=== PATIENT | male | born 1940 | race Caucasian/White ===

== ENCOUNTER 2016-07-12 19:28 | Inpatient (IN) | payer MEDICARE, OTHER ==
--- NOTE | 2016-07-12 19:50 | EDM.PDOC ---
ED HPI HEAD INJURY - General Chief Complaint: Trauma Stated Complaint: Patient was at the local [employer] and tripped and stumbled fell face first to the floor had no LOC has no complaints of pain Time Seen by Provider: 07/12/16 19:30 Source of Information: Reports: Patient, EMS History Limitations: Reports: No limitations - History of Present Illness INITIAL COMMENTS - FREE TEXT/NARRATIVE: patient states he was walking across the floor and remembers stumbling he tripped over his self and fallen to the floor hitting his face he denies any LOC vision change numbness tingling pain loss of bowel or bladder dose as a nosebleed no other injuries Symptom Onset Date: 07/12/16 Symptom Onset Time: 19:20 Location: Reports: face Place of Occurrence: other Worsens with: none Associated Symptoms: Denies: headache, loss of appetite, nausea/vomiting, seizure, weakness, loss of consciousness, visual changes, dizziness, dazed, confused - Related Data Allergies/ADRs: Allergies Allergy/AdvReac Type Severity Reaction Status Date / Time No Known Allergies Allergy Verified 07/12/16 23:07 Home Meds: Home Meds Digoxin [Digoxin] 125 mcg PO QPM 07/12/16 [History] Ergocalciferol (Vitamin D2) [Vitamin D] 400 units PO DAILY 07/12/16 [History] Fish Oil/Temple-3 Fatty Acids [Fish Oil] 1,000 mg PO DAILY 07/12/16 [History] Flaxseed Oil 1,000 mg PO DAILY 07/12/16 [History] Garlic 1 tab PO DAILY 07/12/16 [History] Warfarin Sodium [Jantoven] 2.5 mg PO SUTUWETHSA 07/12/16 [History] Warfarin Sodium [Jantoven] 5 mg PO MOWE 07/12/16 [History] Carvedilol [Carvedilol] 12.5 mg PO DAILY 07/13/16 [History] Enalapril [Vasotec] 5 mg PO DAILY 07/13/16 [History] Past Medical History Cardiovascular History: Reports: Afib, Other (see below) (Patient states is currently on Coumadin last time it was checked approximately 20 or so days ago does not know level) - Past Surgical History HEENT Surgical History: Reports: Tonsillectomy Musculoskeletal Surgical History: Reports: Other (see below) Other Musculoskeletal Surgeries/Procedures:: broken arm Social & Family History - Tobacco Use Smoking Status *Q: Never Smoker - Recreational Drug Use Recreational Drug Use: No ED ROS GENERAL - Review of Systems Review Of Systems: See Below Constitutional: Denies: weakness, diaphoresis HEENT: Denies: Ear discharge, Eye pain, Nose pain, Vertigo Respiratory: Reports: No Symptoms Cardiovascular: Denies: Chest pain, Blood pressure problem, Dyspnea on exertion , Lightheadedness Endocrine: Reports: no symptoms GI/Abdominal: Reports: No symptoms Musculoskeletal: Reports: no symptoms Skin: Reports: no symptoms Neurological: Reports: No Symptoms. Denies: Confusion, Dizziness, Headache, Numbness, Paresthesia, Syncope, Tingling, Weakness, Change in Speech, Gait Disturbance Psychiatric: Reports: No symptoms Hematologic/Lymphatic: Denies: anemia, easy bleeding, easy bruising ED EXAM, HEAD INJURY - Physical Exam Exam: See Below Exam Limited By: No limitations General Appearance: alert, WD/WN, no apparent distress Head: normocephalic, other (Clotted nasal blood bilateral nares). No: atraumatic Nexus Criteria: No: posterior, midline cervical tenderness, evidence of intoxication, altered level of consciousness, focal neurological deficit, painful distracting injuries Eyes: bilateral eye: EOMI, PERRL Ears: normal external exam, normal canal, hearing grossly normal, normal TMs. No: canal blood (Negative blood behind the tms ) Nose: dried blood. No: no blood, active bleeding Throat/Mouth: Normal lips, Normal teeth, Normal gums, Other ( patient has dried blood in the mouth secondary from nasal bleed). No: Bleeding Neck: non-tender, full range of motion, normal alignment, normal inspection, other (No tender to palpation midline no step-offs no crepitus) Respiratory: no respiratory distress, lungs clear, normal breath sounds, no accessory muscle use, chest non-tender Cardiovascular: normal peripheral pulses, irregularly irregular. No: regular rate, rhythm GI/Abdominal Exam (Abbreviated): normal bowel sounds, soft, non tender, no organomegaly, no distention. No: tender Back Exam: normal inspection, full range of motion Neurologic: relationship counselor II-XII nml as tested, no motor/sensory deficits, alert, normal mood/affect, oriented x 3, other (Patient patient follows all commands answers questions appropriately 2 through 12 are intact with equal gear inspector bilaterally 5 out of 5 strength normal JUANJOSE and finger to nose) - [place] Coma Score Best Eye Response ([place]): (4) open spontaneously Best Verbal Response ([place]): (5) oriented Best Motor Response ([place]): (6) obeys commands Course - Vital Signs Text/Narrative:: Will perform CT of head secondary to injury and on Coumadin labs CBC BMP PT PTT inr EKG showed A. fib Will reevaluate patient after CT Patient was rechecked at 2019 AOX3 neurologically intact no complaints noted to be mildly hypertensive 180/100 Will treat with 10 mg of labetalol IV Per radiology Dr. GUERRERO at [place] no signs of any bleeding or masses on the head CT While patient was in the ER he spiked a fever and started having a hypertensive episode Patient was rechecked blood pressure is now normal heart rate is 90 patient has no complaints A urine and a troponin was checked the troponin was normal Urine showed no signs of infection 30 protein moderate blood trace ketone and RBCs Patient will be admitted to [facility] for A. fib, contusion to the face and on high-risk medication Coumadin hyper tension and pyrexia Last Recorded V/S: Last Vital Signs Temp 37.2 C 07/13/16 09:02 Pulse 99 07/13/16 09:02 Resp 18 07/13/16 09:02 BP 119/73 07/13/16 09:02 Pulse Ox 96 07/13/16 09:02 - Orders/Labs/Meds Orders: Active Orders 24 hr Category Date Time Status EKG 12 Lead [EKG Documentation Completion] [RC] STAT Care 07/12/16 19:44 Active Chest 1V Frontal [CR] Stat Exams 07/12/16 20:57 Taken Head wo Cont [CT] Stat Exams 07/12/16 19:42 Taken CULTURE BLOOD [BC] Stat Lab 07/12/16 20:40 Results CULTURE BLOOD [BC] Stat Lab 07/12/16 20:45 Received Sodium Chloride 0.9% [Saline Flush] Med 07/12/16 20:01 Active 10 ml FLUSH ASDIRECTED PRN Blood Culture x2 Reflex Set [OM.PC] Stat Oth 07/12/16 20:39 Ordered Peripheral IV Insertion Adult [OM.PC] Routine Oth 07/12/16 20:01 Ordered Medication Orders Carvedilol (Coreg) 12.5 mg PO BIDM [facility] Last Admin: 07/13/16 07:33 Dose: 12.5 mg Digoxin (Lanoxin) 125 mcg PO DAILY [facility] Last Admin: 07/13/16 07:33 Dose: 125 mcg Enalapril Maleate (Vasotec) 5 mg PO DAILY [facility] Last Admin: 07/13/16 07:33 Dose: 5 mg Sodium Chloride (Saline Flush) 10 ml FLUSH ASDIRECTED PRN PRN Reason: Keep Vein Open Last Admin: 07/13/16 07:34 Dose: 10 ml Admin: 07/12/16 20:29 Dose: 10 ml Warfarin Sodium (Coumadin) 5 mg PO [email or web address] [facility] Warfarin Sodium (Coumadin) 2.5 mg PO [email or web address] [facility] Labs: Laboratory Tests 07/12/16 07/12/16 07/12/16 Range/Units 20:10 20:10 20:10 WBC 7.0 (4.0-10.0) x10^3/uL RBC 4.34 L (4.5-6.0) x10^6/uL Hgb 14.2 (14.0-18.0) g/dL Hct 41.6 (40.0-52.0) % MCV 95.9 H (78.0-93.0) fL MCH 32.7 H (26.0-32.0) pg MCHC 34.1 (32.0-36.0) g/dL RDW Coeff of Genie 13.4 (10.0-15.0) % Plt Count 170 (130-400) x10^3/uL Neut % (Auto) 75.8 (50.0-80.0) % Lymph % (Auto) 5.9 L (25.0-50.0) % [place] % (Auto) 16.8 H (2.0-11.0) % Eos % (Auto) 1.4 (0.0-4.0) % Baso % (Auto) 0.1 L (0.2-1.2) % PT 31.2 H (10.0-12.8) SEC INR 2.7 (2.0-3.5) Sodium 139 (136-145) mmol/L Potassium 4.0 (3.5-5.1) mmol/L Chloride 103 (98-107) mmol/L Carbon Dioxide 27 (21-32) mmol/L BUN 14 (7-18) mg/dL Creatinine 1.1 (0.70-1.30) mg/dL Est Cr Clr Drug Dosing 66.42 mL/min Estimated GFR (MDRD) > 60 Glucose 183 H (74-106) mg/dL Calcium 8.6 (8.5-10.1) mg/dL Troponin I (<=0.056) ng/mL Urine Color (YELLOW) Urine Appearance (CLEAR) Urine pH (5.0-8.0) Ur Specific [place] Urine Protein (NEGATIVE) mg/dL Urine Glucose (UA) (NEGATIVE) mg/dL Urine Ketones (NEGATIVE) mg/dL Urine Occult Blood (NEGATIVE) Urine Nitrite (NEGATIVE) Urine Bilirubin (NEGATIVE) Urine Urobilinogen (0.2) EU/dL Ur Leukocyte Esterase (NEGATIVE) Urine RBC (NOT SEEN) /HPF Urine WBC (NOT SEEN) /HPF Ur Squamous Epith Cells (NEGATIVE) /HPF Urine Bacteria (NEGATIVE) /HPF Urine Mucus (NEGATIVE) /LPF 07/12/16 07/12/16 Range/Units 20:10 21:00 WBC (4.0-10.0) x10^3/uL RBC (4.5-6.0) x10^6/uL Hgb (14.0-18.0) g/dL Hct (40.0-52.0) % MCV (78.0-93.0) fL MCH (26.0-32.0) pg MCHC (32.0-36.0) g/dL RDW Coeff of Genie (10.0-15.0) % Plt Count (130-400) x10^3/uL Neut % (Auto) (50.0-80.0) % Lymph % (Auto) (25.0-50.0) % [place] % (Auto) (2.0-11.0) % Eos % (Auto) (0.0-4.0) % Baso % (Auto) (0.2-1.2) % PT (10.0-12.8) SEC INR (2.0-3.5) Sodium (136-145) mmol/L Potassium (3.5-5.1) mmol/L Chloride (98-107) mmol/L Carbon Dioxide (21-32) mmol/L BUN (7-18) mg/dL Creatinine (0.70-1.30) mg/dL Est Cr Clr Drug Dosing mL/min Estimated GFR (MDRD) Glucose (74-106) mg/dL Calcium (8.5-10.1) mg/dL Troponin I < 0.017 (<=0.056) ng/mL Urine Color Yellow (YELLOW) Urine Appearance Clear (CLEAR) Urine pH 5.5 (5.0-8.0) Ur Specific [place] 1.020 Urine Protein 30 H (NEGATIVE) mg/dL Urine Glucose (UA) Negative (NEGATIVE) mg/dL Urine Ketones Trace H (NEGATIVE) mg/dL Urine Occult Blood Moderate H (NEGATIVE) Urine Nitrite Negative (NEGATIVE) Urine Bilirubin Small H (NEGATIVE) Urine Urobilinogen 2.0 H (0.2) EU/dL Ur Leukocyte Esterase Negative (NEGATIVE) Urine RBC 20-30 H (NOT SEEN) /HPF Urine WBC 0-5 (NOT SEEN) /HPF Ur Squamous Epith Cells Not seen (NEGATIVE) /HPF Urine Bacteria Few H (NEGATIVE) /HPF Urine Mucus Moderate H (NEGATIVE) /LPF Meds: Medications Generic Name Dose Route Start Last Admin Trade Name Freq PRN Reason Stop Dose Admin Carvedilol 12.5 mg 07/13/16 08:00 07/13/16 07:33 Coreg PO 12.5 mg BIDM [facility] Administration Digoxin 125 mcg 07/13/16 08:00 07/13/16 07:33 Lanoxin PO 125 mcg DAILY NAYELI Administration Enalapril Maleate 5 mg 07/13/16 08:00 07/13/16 07:33 Vasotec PO 5 mg DAILY [facility] Administration Sodium Chloride 10 ml 07/12/16 20:01 07/13/16 07:34 Saline Flush FLUSH 10 ml ASDIRECTED PRN Administration Keep Vein Open Warfarin Sodium 5 mg 07/13/16 20:00 Coumadin PO [email or web address] [facility] Warfarin Sodium 2.5 mg 07/14/16 20:00 Coumadin PO [email or web address] [facility] Discontinued Medications Generic Name Dose Route Start Last Admin Trade Name Freq PRN Reason Stop Dose Admin Acetaminophen 650 mg 07/12/16 22:23 Tylenol PO Q4H PRN Pain (Mild 1-3)/fever Carvedilol 12.5 mg 07/12/16 22:21 07/13/16 05:37 Coreg PO 07/12/16 22:22 Not Given ONETIME STA Carvedilol 6.25 mg 07/12/16 22:21 07/12/16 22:49 Coreg PO 07/12/16 22:22 6.25 mg ONETIME STA Administration Labetalol HCl 10 mg 07/12/16 20:26 07/12/16 20:29 Normodyne IVPUSH 07/12/16 20:27 10 mg NOW ONE Administration Departure - Departure Time of Disposition: 21:30 Disposition: Refer to Observation Condition: good Clinical Impression: Pyrexia of unknown origin, High risk medication use, Epistaxis Afib Qualifiers: Atrial fibrillation type: unspecified Qualified Code(s): I48.91 - Unspecified atrial fibrillation Contusion of face Qualifiers: Encounter type: initial encounter Qualified Code(s): S00.83XA - Contusion of other part of head, initial encounter Hypertension Qualifiers: Hypertension type: essential hypertension Qualified Code(s): I10 - Essential ( primary) hypertension - Problem List & Annotations (1) Contusion of face SNOMED Code(s): 023452462 Code(s): S00.83XA - CONTUSION OF OTHER PART OF HEAD, INITIAL ENCOUNTER Status: Acute Current Visit: Yes Annotation/Comment:: - Denies any head trauma or loss of consciousness. - CT head negative. - He was instructed to notify nursing immediately if he were to develop any headache or other neurologic symptoms. - Will ensure adequate BP control as below. Qualifiers: Encounter type: initial encounter Qualified Code(s): S00.83XA - Contusion of other part of head, initial encounter (2) Afib SNOMED Code(s): 74369429 Code(s): I48.91 - UNSPECIFIED ATRIAL FIBRILLATION Status: Acute Current Visit: Yes Qualifiers: Atrial fibrillation type: unspecified Qualified Code(s): I48.91 - Unspecified atrial fibrillation (3) High risk medication use SNOMED Code(s): 341260050, 140788690 Code(s): Z79.899 - OTHER TRAFFIC LIEUTENANT (CURRENT) DRUG THERAPY Status: Chronic Current Visit: Yes Annotation/Comment:: - INR is therapeutic at 2.7. - No indication to reverse it at this time. - Will monitor for any signs of bleeding. (4) Hypertension SNOMED Code(s): 50382866 Code(s): I10 - ESSENTIAL (PRIMARY) HYPERTENSION Status: Chronic Current Visit: Yes Annotation/Comment:: - BP significantly elevated in the ED but responded well to labetalol. - Recheck here on the floor also elevated but normal when checked manually. - Will give a dose of coreg tonight to cover him. Otherwise, continue benazepril. - Will monitor closely overnight. Qualifiers: Hypertension type: essential hypertension Qualified Code(s): I10 - Essential (primary) hypertension (5) Pyrexia of unknown origin SNOMED Code(s): 3065723 Code(s): R50.9 - FEVER, UNSPECIFIED Status: Acute Current Visit: Yes Annotation/Comment:: - Concern for fever in the ED but never met true fever threshold. - WBC normal, no significant symptoms of infection, and negative CXR and u/a. - Will observe overnight off antibiotics. - If he does develop a fever, will start antibiotics and broaden evaluation for a cause. (6) Epistaxis SNOMED Code(s): 23202154, 819626127 Code(s): R04.0 - EPISTAXIS Status: Resolved Current Visit: Yes Annotation/Comment:: - Presented with epistaxis and this has subsequently resolved. - My Orders Last 24 Hours: My Active Orders 07/12/16 19:42 Head wo Cont [CT] Stat 07/12/16 19:44 EKG 12 Lead [EKG Documentation Completion] [RC] STAT 07/12/16 20:01 Sodium Chloride 0.9% [Saline Flush] 10 ml FLUSH ASDIRECTED PRN Peripheral IV Insertion Adult [OM.PC] Routine 07/12/16 20:39 Blood Culture x2 Reflex Set [OM.PC] Stat 07/12/16 20:40 CULTURE BLOOD [BC] Stat 07/12/16 20:45 CULTURE BLOOD [BC] Stat 07/12/16 20:57 Chest 1V Frontal [CR] Stat - Assessment/Plan Last 24 Hours: My Active Orders 07/12/16 19:42 Head wo Cont [CT] Stat 07/12/16 19:44 EKG 12 Lead [EKG Documentation Completion] [RC] STAT 07/12/16 20:01 Sodium Chloride 0.9% [Saline Flush] 10 ml FLUSH ASDIRECTED PRN Peripheral IV Insertion Adult [OM.PC] Routine 07/12/16 20:39 Blood Culture x2 Reflex Set [OM.PC] Stat 07/12/16 20:40 CULTURE BLOOD [BC] Stat 07/12/16 20:45 CULTURE BLOOD [BC] Stat 07/12/16 20:57 Chest 1V Frontal [CR] Stat
[2016-07-12] MEDS ORDERED: Labetalol 20 MG/4 ML Syringe IVPUSH ONE (20:26)
[2016-07-12] MEDS: Sodium Chloride 0.9% 10 ML Syringe FLUSH PRN (20:29)
[2016-07-12 20:31] LABS: CHLORIDE,CL 103 mmol/L (98-107); SODIUM,NA 139 mmol/L (136-145)
[2016-07-12] MEDS ORDERED: Carvedilol 6.25 MG Tab PO STA (22:21)
[2016-07-12] MEDS ORDERED: Carvedilol 12.5 MG Tab PO STA (22:21)
[2016-07-12] MEDS ORDERED: Acetaminophen 325 MG Tab PO PRN (22:23)
--- NOTE | 2016-07-12 22:44 | PCM.HP ---
[id number]: Patient History Limitations: Reports: No limitations - History of Present Illness Initial Comments - Free Text/Narative: Mr. Vernon is a 76 yo male with PMH of chronic atrial fibrillation, CHF, valvular heart disease, CAD, hypertension, and hyperlipidemia who was brought to the ED by EMS for evaluation following a fall earlier tonight. He states he was walking into [place] when he tripped and fell over the landing. There was a cart just inside the door and he ended up hitting his nose on it and getting a bloody nose. He did not really hit his head. He denies any syncope or loss of consciousness. He has had some mild congestion and dry mouth over the past couple of days but denies any significant cough, fever, or chills. He has not really felt unwell or had any myalgias. He has been taking his medications but differently than prescribed. He had developed an itchy rash on his back. Therefore, he cut all of his pills in half and has been taking them once/day. The rash did improve with this decrease. He has not felt any palpitations or lightheadedness. He otherwise denies any symptoms. Please see ROS below. Right Hip Pain Score (Numeric/FACES): 3 - Related Data Allergies/Adverse Reactions: Allergies Allergy/AdvReac Type Severity Reaction Status Date / Time No Known Allergies Allergy Verified 07/12/16 23:07 Home Medications: Home Meds Carvedilol [Coreg] 12.5 mg PO DAILY 07/12/16 [History] Digoxin [Digoxin] 125 mcg PO DAILY 07/12/16 [History] Ergocalciferol (Vitamin D2) [Vitamin D] 1 tab PO DAILY 07/12/16 [History] Fish Oil/[place]-3 Fatty Acids [Fish Oil] 1 each PO DAILY 07/12/16 [History] Flaxseed Oil 1 cap PO DAILY 07/12/16 [History] Garlic 1 tab PO DAILY 07/12/16 [History] Warfarin Sodium [Jantoven] 2.5 mg PO ASDIRECTED 07/12/16 [History] Warfarin Sodium [Jantoven] 5 mg PO ASDIRECTED 07/12/16 [History] Enalapril [Vasotec] 5 mg PO DAILY 07/13/16 [History] Past Medical History HEENT History: Reports: None Cardiovascular History: Reports: Afib, High cholesterol, Hypertension, Other ( see below) (has history of mild valvular disease; Patient states is currently on Coumadin last time it was checked approximately 20 or so days ago does not know level) Respiratory History: Reports: None Gastrointestinal History: Reports: None Genitourinary History: Reports: None Musculoskeletal History: Reports: None Neurological History: Reports: None Psychiatric History: Reports: None Endocrine/Metabolic History: Reports: None Hematologic History: Reports: None Immunologic History: Reports: None Oncologic (Cancer) History: Reports: None Dermatologic History: Reports: None - Infectious Disease History Infectious Disease History: Reports: None - Past Surgical History HEENT Surgical History: Reports: Tonsillectomy Musculoskeletal Surgical History: Reports: Other (see below) Other Musculoskeletal Surgeries/Procedures:: broken arm Social & Family History - Family History Family Medical History: Unobtainable (patient does not know of his family medical history) - Tobacco Use Smoking Status *Q: Former Smoker Tobacco Use Within Last Twelve Months: No - Caffeine Use Caffeine Use: Reports: Coffee - Alcohol Use Alcohol Use History: Yes Alcohol Use in Last Twelve Months: No - Recreational Drug Use Recreational Drug Use: No - Living Situation & Occupation Living situation: Reports: single, alone Occupation: retired (Had worked in the [employer] for many years; most recently worked at [employer] Never ; no children.) H&P Review of Systems - Review of Systems: Review Of Systems: See Below General: Reports: no symptoms HEENT: Reports: no symptoms Pulmonary: Reports: No Symptoms Cardiovascular: Reports: no symptoms Gastrointestinal: Reports: No symptoms Genitourinary: Reports: no symptoms Musculoskeletal: Reports: no symptoms Skin: Reports: no symptoms Psychiatric: Reports: no symptoms Neurological: Reports: No Symptoms Hematologic/Lymphatic: Reports: no symptoms Exam - Exam Exam: See Below - Vital Signs Vital Signs: Last Vital Signs Temp 37.8 C 07/12/16 21:10 Pulse 93 07/12/16 21:10 Resp 16 07/12/16 21:10 BP 162/92 H 07/12/16 21:10 Pulse Ox 95 07/12/16 21:10 Weight: 99.79 kg - Exam General: alert, oriented, cooperative. No: mild distress, moderate distress, severe distress HEENT: Conjunctiva clear, Mucosa moist & pink, Pupils equal, Pupils reactive, Other (dried blood at the left nare) Neck: supple, trachea midline, full range of motion, other (no midline tenderness to palpation; no pain with ROM). No: lymphadenopathy, thyromegaly Lungs: Clear to auscultation, Normal respiratory effort Cardiovascular: regular rate, normal S1, normal S2, irregular rhythm. No: systolic murmur, diastolic murmur Abdomen: normal bowel sounds, soft. No: organomegaly, tenderness Back Exam: normal inspection, full range of motion Extremities: normal inspection, normal pulses. No: edema Skin: warm, dry, intact. No: rash Neurological: cranial nerves intact, reflexes equal bilateral, normal speech, normal tone. No: focal deficit - Patient Data Result Diagrams: 07/13/16 06:14 07/13/16 06:14 *Q Meaningful Use (ADM) - VTE *Q VTE Criteria *Q: VTE Anticoagulation Contraindications: Med/tx not indicated/need - Stroke *Q Stroke Criteria *Q: - AMI *Q AMI Criteria *Q: - Problem List (1) Fall SNOMED Code(s): 1452090, 330114589 ICD Code: W19.XXXA - UNSPECIFIED FALL, INITIAL ENCOUNTER Status: Acute Current Visit: Yes Problem Details: - Mechanical. - He does not appear to have sustained any significant injuries from this. - His epistaxis has resolved. CT head was negative. - He will not likely require any PT. Qualifiers: Encounter type: initial encounter Qualified Code(s): W19.XXXA - Unspecified fall, initial encounter (2) Contusion of face SNOMED Code(s): 440547624 ICD Code: S00.83XA - CONTUSION OF OTHER PART OF HEAD, INITIAL ENCOUNTER Status: Acute Current Visit: Yes Problem Details: - Denies any head trauma or loss of consciousness. - CT head negative. - He was instructed to notify nursing immediately if he were to develop any headache or other neurologic symptoms. - Will ensure adequate BP control as below. Qualifiers: Encounter type: initial encounter Qualified Code(s): S00.83XA - Contusion of other part of head, initial encounter (3) Epistaxis SNOMED Code(s): 29711722, 755939150 ICD Code: R04.0 - EPISTAXIS Status: Resolved Current Visit: Yes Problem Details: - Presented with epistaxis and this has subsequently resolved. (4) Atrial fibrillation with RVR SNOMED Code(s): 613219803389246 ICD Code: I48.91 - UNSPECIFIED ATRIAL FIBRILLATION Status: Acute Current Visit: Yes Problem Details: - Atrial fibrillation is chronic but he is in RVR tonight. - Likely related to medication noncompliance as he only takes his coreg once/ day. Differential considerations that have been ruled out include electrolyte disturbance, infection (negative WBC, no symptoms of infection, no true fever), and ACS (unremarkable ECG, negative troponin). Consider thyroid disease but this is less likely without a history of the same. - Will check TSH with am labs and repeat CBC and BMP tomorrow. - Will give 6.25 mg of coreg tonight given he is at risk of rebounding once the labetalol fully wears off. - Will then start him on 12.5 mg BID as of tomorrow. - Continue home dose of digoxin at 125 mcg. - Will monitor him for a full 24 hours on that dose to ensure he remains rate controlled. 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 - No indication to reverse it at this time. - Will monitor for any signs of bleeding. (6) Hyperlipidemia SNOMED Code(s): 37702774 ICD Code: E78.5 - HYPERLIPIDEMIA, UNSPECIFIED Status: Chronic Current Visit: Yes Problem Details: - Hold fish oil while hospitalized. Qualifiers: Hyperlipidemia type: unspecified Qualified Code(s): E78.5 - Hyperlipidemia , unspecified (7) CHF (congestive heart failure) SNOMED Code(s): 95666482 ICD Code: I50.9 - HEART FAILURE, UNSPECIFIED Status: Chronic Current Visit: Yes Problem Details: - No evidence of CHF exacerbation. - No indication for lasix therapy. - Continue benazepril and coreg. Qualifiers: Congestive heart failure type: diastolic Congestive heart failure chronicity: chronic Qualified Code(s): I50.32 - Chronic diastolic (congestive ) heart failure (8) Hypertension SNOMED Code(s): 90681557 ICD Code: I10 - ESSENTIAL (PRIMARY) HYPERTENSION Status: Chronic Current Visit: Yes Problem Details: - BP significantly elevated in the ED but responded well to labetalol. - Recheck here on the floor also elevated but normal when checked manually. - Will give a dose of coreg tonight to cover him. Otherwise, continue benazepril. - Will monitor closely overnight. Qualifiers: Hypertension type: essential hypertension Qualified Code(s): I10 - Essential (primary) hypertension (9) Pyrexia of unknown origin SNOMED Code(s): 5030535 ICD Code: R50.9 - FEVER, UNSPECIFIED Status: Acute Current Visit: Yes Problem Details: - Concern for fever in the ED but never met true fever threshold. - WBC normal, no significant symptoms of infection, and negative CXR and u/a. - Will observe overnight off antibiotics. - If he does develop a fever, will start antibiotics and broaden evaluation for a cause. Problem List Initiated/Reviewed/Updated: Yes Orders Last 24hrs: Active Orders 24 hr Category Date Time Status Cardiac Monitoring [RC] CONTINUOUS Care 07/12/16 22:23 Ordered Notify Provider Vital Signs [RC] ASDIRECTED Care 07/12/16 22:23 Ordered Oxygen Therapy [RC] PRN Care 07/12/16 22:23 Ordered Up With Assistance [RC] ASDIRECTED Care 07/12/16 22:23 Ordered VTE/DVT Education [RC] PER UNIT ROUTINE Care 07/12/16 22:23 Ordered Vital Signs [RC] Q4H Care 07/12/16 22:23 Ordered Regular Diet [DIET] Diet 07/12/16 Breakfast Ordered Carvedilol [Coreg] Med 07/13/16 08:00 Ordered 12.5 mg PO BIDM Digoxin [Lanoxin] Med 07/13/16 08:00 Ordered 125 mcg PO DAILY Enalapril [Vasotec] Med 07/13/16 08:00 Ordered 5 mg PO DAILY Warfarin [Coumadin] Med 07/14/16 20:00 Ordered 2.5 mg PO [email or web address]@1999 Warfarin [Coumadin] Med 07/13/16 20:00 Ordered 5 mg PO [email or web address]@1999 Anticoagulation Contraindications VTE [AST] Per Unit Oth 07/12/16 22:23 Ordered Routine Resuscitation Status Routine Resus Stat 07/12/16 22:23 Ordered Medication Orders Carvedilol (Coreg) 12.5 mg PO BIDM NAYELI Digoxin (Lanoxin) 125 mcg PO DAILY NAYELI Enalapril Maleate (Vasotec) 5 mg PO DAILY [facility] Sodium Chloride (Saline Flush) 10 ml FLUSH ASDIRECTED PRN PRN Reason: Keep Vein Open Last Admin: 07/12/16 20:29 Dose: 10 ml Warfarin Sodium (Coumadin) 5 mg PO [email or web address]@1999 [facility] Warfarin Sodium (Coumadin) 2.5 mg PO [email or web address]@1999 [facility] Assessment/Plan Comment:: 76 yo male admitted with atrial fibrillation with RVR following a mechanical fall earlier this evening. He is asymptomatic and otherwise feeling well. Please see details under problems above. Will restart all home meds but increase coreg to BID dosing. No indication for VTE prophylaxis as he is therapeutic on warfarin. He is admitted acute for further evaluation and management of the a-fib with RVR. Anticipate a 48-72 hour admission to get his rate better controlled. He wishes to be DNR/DNI.
[2016-07-13] MEDS: Digoxin 125 MCG Tab PO SCH (07:33)
[2016-07-13] MEDS: Carvedilol 12.5 MG Tab PO SCH ×2 (07:33→17:17)
[2016-07-13] MEDS: Enalapril 5 MG Tab PO SCH (07:33)
[2016-07-13] MEDS: Sodium Chloride 0.9% 10 ML Syringe FLUSH PRN (07:34)
[2016-07-13 07:46] LABS: CHLORIDE,CL 103 mmol/L (98-107); SODIUM,NA 139 mmol/L (136-145)
--- NOTE | 2016-07-13 12:34 | PCM.PN ---
- General Info Date of Service: 07/13/16 Subjective Update: Feels ok this morning except for when he gets up and moves around. Then he starts to have significant right hip pain and has noticed his heart beating faster. He denies any chest pain, shortness of breath, or lightheadedness. He has had no fever or chills. His nosebleed remains resolved. - Review of Systems General: Reports: No Symptoms HEENT: Reports: no symptoms Pulmonary: Reports: no symptoms Cardiovascular: Reports: Palpitations. Denies: Chest Pain, Lightheadedness Gastrointestinal: Reports: No symptoms Genitourinary: Reports: no symptoms Musculoskeletal: Reports: joint pain (right hip) Skin: Reports: no symptoms - Patient Data Vitals - most recent: Last Vital Signs Temp 37.2 C 07/13/16 09:02 Pulse 99 07/13/16 09:02 Resp 18 07/13/16 09:02 BP 119/73 07/13/16 09:02 Pulse Ox 96 07/13/16 09:02 Weight - most recent: 99.79 kg I&O - last 24 hours: Intake & Output 07/12/16 07/13/16 07/13/16 22:59 06:59 14:59 Intake Total 300 Output Total 850 300 Balance -550 -300 Lab Results last 24 hrs: Laboratory Results - last 24 hr 07/13/16 07/13/16 Range/Units 06:14 06:14 WBC 8.3 (4.0-10.0) x10^3/uL RBC 4.04 L (4.5-6.0) x10^6/uL Hgb 13.3 L (14.0-18.0) g/dL Hct 39.3 L (40.0-52.0) % MCV 97.3 H (78.0-93.0) fL MCH 32.9 H (26.0-32.0) pg MCHC 33.8 (32.0-36.0) g/dL RDW Coeff of Genie 13.3 (10.0-15.0) % Plt Count 174 (130-400) x10^3/uL Neut % (Auto) 76.7 (50.0-80.0) % Lymph % (Auto) 7.4 L (25.0-50.0) % Boundary % (Auto) 15.4 H (2.0-11.0) % Eos % (Auto) 0.4 (0.0-4.0) % Baso % (Auto) 0.1 L (0.2-1.2) % Sodium 139 (136-145) mmol/L Potassium 4.0 (3.5-5.1) mmol/L Chloride 103 (98-107) mmol/L Carbon Dioxide 30 (21-32) mmol/L BUN 12 (7-18) mg/dL Creatinine 1.0 (0.70-1.30) mg/dL Est Cr Clr Drug Dosing 73.07 mL/min Estimated GFR (MDRD) > 60 Glucose 129 H (74-106) mg/dL Calcium 8.5 (8.5-10.1) mg/dL TSH, Ultra Sensitive 2.692 (0.358-3.74) uIU/mL Med Orders - Current: Current Medications Carvedilol (Coreg) 12.5 mg PO BIDM [facility] Last Admin: 07/13/16 07:33 Dose: 12.5 mg Digoxin (Lanoxin) 125 mcg PO DAILY [facility] Last Admin: 07/13/16 07:33 Dose: 125 mcg Enalapril Maleate (Vasotec) 5 mg PO DAILY [facility] Last Admin: 07/13/16 07:33 Dose: 5 mg Sodium Chloride (Saline Flush) 10 ml FLUSH ASDIRECTED PRN PRN Reason: Keep Vein Open Last Admin: 07/13/16 07:34 Dose: 10 ml Warfarin Sodium (Coumadin) 5 mg PO [email or web address]@1999 [facility] Warfarin Sodium (Coumadin) 2.5 mg PO [email or web address]@1999 [facility] Discontinued Medications Acetaminophen (Tylenol) 650 mg PO Q4H PRN PRN Reason: Pain (Mild 1-3)/fever Carvedilol (Coreg) 12.5 mg PO ONETIME STA Stop: 07/12/16 22:22 Last Admin: 07/13/16 05:37 Dose: Not Given Carvedilol (Coreg) 6.25 mg PO ONETIME STA Stop: 07/12/16 22:22 Last Admin: 07/12/16 22:49 Dose: 6.25 mg Labetalol HCl (Normodyne) 10 mg IVPUSH NOW ONE Stop: 07/12/16 20:27 Last Admin: 07/12/16 20:29 Dose: 10 mg - Exam General: alert, cooperative, no acute distress HEENT: Pupils equal, Pupils reactive, Mucous membr. moist/pink Neck: supple, trachea midline, no thyromegaly. No: lymphadenopathy Lungs: Clear to auscultation, Normal respiratory effort Cardiovascular: No Murmurs, Irregular Rhythm, Tachycardia Abdomen: bowel sounds present, soft, no tenderness, no distension Extremities: no edema, normal pulses, other (tenderness to palpation over the lateral aspect of the right hip. No pain with passive internal and external rotation. No bruising or erythema.) Skin: warm, dry, intact - Problem List & Annotations (1) Fall SNOMED Code(s): 1671696, 172738503 Code(s): W19.XXXA - UNSPECIFIED FALL, INITIAL ENCOUNTER Status: Acute Current Visit: Yes Qualifiers: Encounter type: initial encounter Qualified Code(s): W19.XXXA - Unspecified fall, initial encounter Annotation/Comment:: - Mechanical. - His epistaxis has resolved. CT head was negative. - PT consult today to assist with mobilization. (2) Contusion of face SNOMED Code(s): 686246784 Code(s): S00.83XA - CONTUSION OF OTHER PART OF HEAD, INITIAL ENCOUNTER Status: Acute Current Visit: Yes Qualifiers: Encounter type: initial encounter Qualified Code(s): S00.83XA - Contusion of other part of head, initial encounter Annotation/Comment:: - Denies any head trauma or loss of consciousness. - CT head negative. - He was instructed to notify nursing immediately if he were to develop any headache or other neurologic symptoms. - Will ensure adequate BP control as below. (3) Epistaxis SNOMED Code(s): 51050792, 421418953 Code(s): R04.0 - EPISTAXIS Status: Resolved Current Visit: Yes Annotation/Comment:: - Presented with epistaxis and this has subsequently resolved. (4) Atrial fibrillation with RVR SNOMED Code(s): 091044967725995 Code(s): I48.91 - UNSPECIFIED ATRIAL FIBRILLATION Status: Acute Current Visit: Yes Annotation/Comment:: - Atrial fibrillation is chronic. Rate is improved today except with activity. - Likely related to medication noncompliance as he only takes his coreg once/ day. Differential considerations that have been ruled out as previously documented. TSH normal. - Will see how he does on 12.5 mg coreg BID today. If he is still having tachycardia with activity, will increase back to 25 mg BID. - Continue home dose of digoxin at 125 mcg. - Remain on telemetry. 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 - Continue home warfarin dosing. Will recheck INR tomorrow. - No indication to reverse it at this time. - Will monitor for any signs of bleeding. (6) Hyperlipidemia SNOMED Code(s): 63217752 Code(s): E78.5 - HYPERLIPIDEMIA, UNSPECIFIED Status: Chronic Current Visit: Yes Qualifiers: Hyperlipidemia type: unspecified Qualified Code(s): E78.5 - Hyperlipidemia , unspecified Annotation/Comment:: - Hold fish oil while hospitalized. (7) CHF (congestive heart failure) SNOMED Code(s): 54521498 Code(s): I50.9 - HEART FAILURE, UNSPECIFIED Status: Chronic Current Visit : Yes Qualifiers: Congestive heart failure type: diastolic Congestive heart failure chronicity: chronic Qualified Code(s): I50.32 - Chronic diastolic (congestive ) heart failure Annotation/Comment:: - No evidence of CHF exacerbation. - No indication for lasix therapy. - Continue benazepril and coreg. (8) Hypertension SNOMED Code(s): 74414864 Code(s): I10 - ESSENTIAL (PRIMARY) HYPERTENSION Status: Chronic Current Visit: Yes Qualifiers: Hypertension type: essential hypertension Qualified Code(s): I10 - Essential (primary) hypertension Annotation/Comment:: - BP stable overnight. - Continue benazepril and coreg. (9) Pyrexia of unknown origin SNOMED Code(s): 3286611 Code(s): R50.9 - FEVER, UNSPECIFIED Status: Acute Current Visit: Yes Annotation/Comment:: - Concern for fever in the ED but never met true fever threshold. No recurrence of fever. - WBC normal, no significant symptoms of infection, and negative CXR and u/a. - Will continue to observe off antibiotics. (10) Hip pain, right SNOMED Code(s): 43547239 Code(s): M25.551 - PAIN IN RIGHT HIP Status: Acute Current Visit: Yes Annotation/Comment:: - Started after fall last night. Mechanism would not be consistent with a fracture but this does need to be excluded. More likely flare of DJD vs. bursitis related to the fall. - X-rays today. - If negative, will have PT evaluate him. - Problem List Review Problem List Initiated/Reviewed/Updated: Yes - My Orders Last 24 Hours: My Active Orders 07/12/16 22:23 Cardiac Monitoring [RC] 06,10,14,18,, Notify Provider Vital Signs [RC] .PRN Up With Assistance [RC] ASDIRECTED VTE/DVT Education [RC] .PRN Vital Signs [RC] ,,,,, Anticoagulation Contraindications VTE [AST] Per Unit Routine Resuscitation Status Routine 07/13/16 08:00 Carvedilol [Coreg] 12.5 mg PO BIDM Digoxin [Lanoxin] 125 mcg PO DAILY Enalapril [Vasotec] 5 mg PO DAILY 07/13/16 08:50 Hip Min 2V or 3V Rt [CR] Routine Pelvis 1V or 2V [CR] Routine 07/13/16 12:26 PT Evaluation and Treatment [CONS] Routine 07/13/16 20:00 Warfarin [Coumadin] 5 mg PO [email or web address]@199907/14/16 20:00 Warfarin [Coumadin] 2.5 mg PO SuTuThSa@1999 - Assessment Assessment:: 76 yo male admitted with atrial fibrillation with RVR after presenting for a mechanical fall. Feels unsteady on his feet today, mainly related to right hip pain. Rates improved overnight. RVR felt to be secondary to medication noncompliance. - Plan Plan:: Please see details under problems above. Will adjust coreg depending on rates today. No indication for VTE prophylaxis as he is therapeutic on warfarin. He is admitted acute for further evaluation and management of the a-fib with RVR. Anticipate a 48-72 hour admission to get his rate better controlled. He wishes to be DNR/DNI.
[2016-07-13] MEDS ORDERED: Warfarin 5 MG Tab PO SCH (20:00)
[2016-07-14 07:43] LABS: CHLORIDE,CL 104 mmol/L (98-107); SODIUM,NA 141 mmol/L (136-145)
[2016-07-14] MEDS: Carvedilol 12.5 MG Tab PO SCH ×2 (07:43→17:02)
[2016-07-14] MEDS: Digoxin 125 MCG Tab PO SCH (07:43)
[2016-07-14] MEDS: Sodium Chloride 0.9% 10 ML Syringe FLUSH PRN (08:13)
[2016-07-14] MEDS: Enalapril 5 MG Tab PO SCH (08:13)
--- NOTE | 2016-07-14 11:05 | PN ---
Progress Note for JESSICA OLEARY Date: 07/14/2016 Room #: VM.204 SUBJECTIVE: This is a 76-year-old white male, admitted to acute care on 07/12/2016 after he sustained a mechanical fall when he was at [facility], [place] that night. He has some facial injuries and some hip pain. He had a CT scan of his head, which was unremarkable and x-rays of his hip and pelvis. He was also found to be in atrial fibrillation with RVR, mainly because he had not taken his Coreg, because of he was concerned about a rash he developed because of the Coreg, and so he was cutting back on the amount he was taking. In the hospital, he was monitored and assessed. He had his Coreg restarted and is up to 12.5 mg b.i.d. He is tolerating that well. His heart rate has been in the 80s to 160, still irregular. The rate is much improved. He denied having chest pain, shortness of breath, or dizziness. His main complaint is his hip discomfort, mainly with ambulation. This is of the right hip. He is not having any abdominal symptoms. Appetite is good. No change in bowel or bladder habits. OBJECTIVE: General: He is alert, afebrile. Vital Signs: Pulse is 88 and regular. Blood pressure is 127/80, respirations are 20, O2 sats 99% on room air. Heart: Irregular. No murmur heard. Lungs: Clear to auscultation. Abdomen: Soft and nontender. No masses. Extremities: Warm and dry. No edema. LABORATORY DATA: Today, white count 8.1, hemoglobin 12.2. INR 2.3. He is on Coumadin for his atrial fibrillation. Electrolytes are normal. Creatinine is normal and stable. ASSESSMENT: 1. Atrial fibrillation with rapid ventricular rate, improved, rate controlled now. 2. Mechanical fall with facial injuries and right hip pain. PLAN: The patient is improved. Continue to monitor him today. Yesterday was the first day he has actually had a controlled heart rate. We would like to monitor him another 24 hours to see if we need to make any further adjustments with his Coreg dosing. He has had physical therapy evaluation, and they wanted to take him on swing bed for continued therapy. He lives alone above [employer], and he needs to get up 20 steps to get into his house. At this point in time, he is not able to do that. We will transfer him to swing bed tomorrow if he is stable for ongoing physical therapy. FM: 07/14/2016 10:38:04 MODL: 07/14/2016 10:57:52 /[id number] MTDD
[2016-07-14] MEDS ORDERED: Warfarin 2.5 MG Tab PO SCH (20:00)
[2016-07-15] MEDS: Carvedilol 12.5 MG Tab PO SCH (07:29)
[2016-07-15] MEDS: Enalapril 5 MG Tab PO SCH (07:29)
[2016-07-15] MEDS: Digoxin 125 MCG Tab PO SCH (07:30)
[2016-07-15 09:37] VITALS: BP 141/81
--- NOTE | 2016-07-16 01:10 | DISCH ---
The patient is being transferred from acute care to swing bed within the hospital. Admission date to acute care was 07/12/2016, transfer date to swing bed is 07/15/2016. FINAL DIAGNOSES: 1. Atrial fibrillation with rapid ventricular response - improved and rate controlled. 2. Mechanical fall with facial injuries and right hip pain. The right hip pain is precluding him from going up to 20 stairs to get into his house. HOSPITAL COURSE: A 76-year-old white male, admitted to acute care on 07/12/2016 after he sustained a mechanical fall at [facility]. CT scan of his head was unremarkable and x-rays of the hip and pelvis are unremarkable. He is found to be in atrial fibrillation with RVR mainly because he had been noncompliant with his Coreg because of concerns about a rash he had developed. His Coreg was restarted at 12.5 mg b.i.d. which he tolerated. Digoxin was restarted on a lower dose so was his lisinopril. With resumption of his medications, his heart rate has stabilized and remained in the 80s for the duration of his stay with occasionally going into the 100s. He did not need to have these medications increased or adjusted. He had physical therapy evaluation. He was walking in the hallway with standby assist but he had not been assessed for stairways yet. LABORATORY DATA: White count 7.0, hemoglobin 14.2. Electrolytes were normal. Creatinine was normal at 1.1. INR was 2.3 on discharge. TSH was normal. His EKG showed atrial fibrillation with RVR rate of about 112. CT scan of his head showed no intracranial mass or hemorrhage. X-ray of his hip was unremarkable, did show some arthritis. X-ray of his pelvis was unremarkable. Official report is pending. He was felt stable for transfer to swing bed on 07/15/2016. TRANSFER MEDICATIONS: Coreg 12.5 mg b.i.d., digoxin 125 mcg daily, enalapril 5 mg daily. Coumadin 5 mg Saturday, Saturday, Saturday and 2.5 mg Saturday, Saturday, , Saturday. He will be followed up on swing bed. Dr. Rodríguez is his primary provider. This dictation will also serve as swing bed H and P. Please place on a swing bed chart. Duration of discharge day evaluation less than 30 minutes. FM: 07/15/2016 09:43:54 MODL: 07/15/2016 10:04:45 /[id number] [id number]
== END 2016-07-15 09:55 | disposition swing bed (61) | DRG 309 ==
LOC: SUPCPDRO 19:28 → VM.ED 19:28 → VM.MS 21:53
PROVIDERS: ADMIT Family Medicine; ATTEND Family Medicine
DX: I48.91 Unspecified atrial fibrillation (principal); I50.32 Chronic diastolic (congestive) heart failure; S00.83XA Contusion of other part of head, initial encounter; Z79.899 Other long term (current) drug therapy; R50.9 Fever, unspecified; W18.39XA Other fall on same level, initial encounter; E78.00 Pure hypercholesterolemia, unspecified; R04.0 Epistaxis; Z79.01 Long term (current) use of anticoagulants; Z87.891 Personal history of nicotine dependence; E78.5 Hyperlipidemia, unspecified; I11.0 Hypertensive heart disease with heart failure; M25.551 Pain in right hip; Z66 Do not resuscitate
CPT/HCPCS: 36415; 70450; 71010; 80048; 81001; 84484; 85025; 85610; 87040 ×2; 93005; 96374; 99285 ×2; J7050; 72170; 84443; 97161-GP; A9270-GY

== ENCOUNTER 2016-07-15 08:00 | Inpatient (IN) | payer MEDICARE, OTHER ==
[2016-07-15] MEDS ORDERED: Acetaminophen 325 MG Tab PO PRN (12:01)
[2016-07-15] MEDS ORDERED: Carvedilol 12.5 MG Tab PO SCH ×2 (12:15→18:00)
[2016-07-15] MEDS ORDERED: Digoxin 125 MCG Tab PO SCH (12:15)
[2016-07-15] MEDS: Carvedilol 12.5 MG Tab PO SCH (17:10)
[2016-07-15] MEDS: Warfarin 2.5 MG Tab PO SCH (20:06)
[2016-07-16] MEDS: Digoxin 125 MCG Tab PO SCH (07:52)
[2016-07-16] MEDS: Carvedilol 12.5 MG Tab PO SCH ×2 (07:52→17:14)
[2016-07-16] MEDS: Enalapril 5 MG Tab PO SCH (07:52)
--- NOTE | 2016-07-16 09:02 | PN ---
Progress Note for JESSICA OLEARY Date: 07/16/2016 Room #: VM.204 SUBJECTIVE: The patient had been admitted to acute care on 07/12/2016 after a fall where he contused his face. He was noted to be in atrial fibrillation with rapid ventricular response, because he cut back on his pills. He then had bruised his right hip, and once his heart rate had slowed down, he was not able to walk, to do stairs to get back to his home, so he was placed on swing bed on 07/14/2016. The patient otherwise states that he is breathing better. He is not short of breath. His carvedilol had been resumed at b.i.d. to help with rhythm control. It was noted on his chest x-ray on acute care that his heart gotten enlarged. ProBNP had not been done. OBJECTIVE: Vital Signs: His temperature is 37.1, pulse 87, blood pressure is 137/67, saturations 93% on room air. HEENT: He has a contusion on his nose with some abrasions that are healing. Heart: Irregularly irregular. Lungs: Clear to auscultation. Abdomen: Soft. Extremities: Right hip is tender. LABORATORY DATA: His INR was done today is therapeutic at 2.1. IMPRESSION: 1. Atrial fibrillation with rapid ventricular response, now controlled. 2. Congestive heart failure exacerbation. 3. Right hip contusion. 4. Facial contusion. PLAN: The patient will continue with therapy. He is told he can take some Tylenol for pain, and tomorrow, we will repeat lab work to see how his hemoglobin is, as this had been dropping on acute cares as well as a proBNP. The patient eventually will need to be set up for an echocardiogram, however, his heart most likely decompensated because the patient had reduced his carvedilol medication. He will continue to work with therapies. We will also have OT evaluate the patient as well, if they had not evaluated him on acute care. GM07/16/2016 08:15:22 MODL: 07/16/2016 08:43:09 /[id number]
[2016-07-16] MEDS: Warfarin 5 MG Tab PO SCH (19:38)
[2016-07-17 06:59] LABS: CHLORIDE,CL 105 mmol/L (98-107); SODIUM,NA 141 mmol/L (136-145)
[2016-07-17] MEDS: Digoxin 125 MCG Tab PO SCH (07:33)
[2016-07-17] MEDS: Carvedilol 12.5 MG Tab PO SCH ×2 (07:33→18:31)
[2016-07-17] MEDS: Enalapril 5 MG Tab PO SCH (07:33)
[2016-07-17] MEDS: Warfarin 2.5 MG Tab PO SCH (19:24)
[2016-07-18] MEDS: Digoxin 125 MCG Tab PO SCH (07:20)
[2016-07-18] MEDS: Enalapril 5 MG Tab PO SCH (07:20)
[2016-07-18] MEDS: Carvedilol 12.5 MG Tab PO SCH ×2 (07:20→17:33)
[2016-07-18] MEDS: Warfarin 5 MG Tab PO SCH (20:16)
[2016-07-19 06:30] VITALS: BP 154/98
[2016-07-19] MEDS: Enalapril 5 MG Tab PO SCH (07:59)
[2016-07-19] MEDS: Carvedilol 12.5 MG Tab PO SCH (08:00)
[2016-07-19] MEDS: Digoxin 125 MCG Tab PO SCH (08:00)
--- NOTE | 2016-07-20 00:54 | DISCH ---
PRIMARY DIAGNOSES: 1. Atrial fibrillation with rapid ventricular rate, now controlled. 2. CHF exacerbation. 3. Right hip contusion. 4. Facial contusion. 5. Hypertension. HISTORY OF PRESENT ILLNESS: The patient is a 76-year-old male, who was admitted to acute care after tripping and falling on 07/12/2016. It was noted when he was brought in that his heart rate was fast and it was discovered he had reduced his Coreg medication to once a day instead of twice a day. The patient required physical therapy to help with strengthening, so he could do stairs, as he lives in an apartment that is 2nd floor building. He progressed nicely with physical therapy, just required an occasional Tylenol for pain control. His blood pressure had been noted to be slightly elevated on 07/19/2016 but that was felt to be due to eagerness for going home. It was up to 154/98. The patient declined to have home health take care of him. LABORATORY DATA: He had lab work done on 07/17/2016 that shows white blood cell count 7.1, hemoglobin 11.4, platelets 214, 68 segs, 12 lymphocytes. INR on 07/16 was 2.1. Sodium was 141, potassium 4.4, creatinine 1.0. GFR greater than 60. Glucose was 123, proBNP was 542, albumin 2.7. DISCHARGE MEDICATIONS: Acetaminophen 650 q.4 hours p.r.n., carvedilol 12.5 mg 1 p.o. b.i.d., digoxin 125 mcg 1 pill daily, enalapril 5 mg 1 pill daily. Coumadin 5 mg on Saturday, Saturday, and Saturday, and 2.5 mg on Saturday, , Saturday, Saturday. DIET: His diet can be regular. He will still be managed by the [facility] for his INR rechecks. FOLLOWUP: The patient was asked to see me in 2 weeks' time in the clinic. At that time, we will need to set him up for a followup echocardiogram as he has not had one in a few years. GM07/19/2016 08:20:57 MODL: 07/20/2016 00:45:04 /[id number]
== END 2016-07-19 08:55 | disposition home or self-care (01) | DRG 948 ==
LOC: VM.MS 08:00 → UNDOADMIN 08:00 → VM.MS 09:55
PROVIDERS: ADMIT Family Medicine; ATTEND Family Medicine
DX: R53.1 Weakness (principal); I48.91 Unspecified atrial fibrillation; I50.9 Heart failure, unspecified; S70.01XD Contusion of right hip, subsequent encounter; S00.83XD Contusion of other part of head, subsequent encounter; W19.XXXD Unspecified fall, subsequent encounter; T44.7X Poisoning by, adverse effect of and underdosing of beta-adrenoreceptor antagonists; Z91.128 Patient's intentional underdosing of medication regimen for other reason
CPT/HCPCS: 36415; 80053; 83880; 85025; 85610; 97116-GP; 97165-GO; 97530-GP; A9270-GY

== ENCOUNTER 2017-12-03 10:15 | Emergency (ER) | payer MEDICARE, OTHER ==
[2017-12-03] MEDS ORDERED: Sodium Chloride 0.9% 10 ML Syringe FLUSH PRN (10:23)
[2017-12-03] MEDS ORDERED: Diltiazem 25 MG/5 ML SDV IVPUSH ONE ×2 (10:26→11:34)
[2017-12-03 11:21] LABS: ANION GAP 15.1 mmol/L (10-20)
[2017-12-03] MEDS ORDERED: Sodium Chloride 0.9% 1,000 ML IV ONE (11:25)
[2017-12-03] MEDS ORDERED: Diltiazem 125 MG in Sodium Chloride 0.9% 100 ML IV SCH (11:30)
--- NOTE | 2017-12-03 11:34 | EDM.PDOC ---
ED HPI GENERAL MEDICAL PROBLEM - General Chief Complaint: Respiratory Problem Stated Complaint: ER Time Seen by Provider: 12/03/17 10:20 Source of Information: Reports: Patient History Limitations: Reports: No Limitations - History of Present Illness INITIAL COMMENTS - FREE TEXT/NARRATIVE: Pt. presents to ER with complaints of tachycardia and dyspnea. He states that he stopped taking his carvedilol and digoxin because he was experiencing joint and muscle pains he attributed to the medications. He has a history of a-fib with RVR. He states that over the past several days he has been experiencing increased dyspnea, weakness and fatigue. He denies any palpitations. He made an appointment for the clinic. When he was having his vital signs evaluated, he was found to be tachycardic and was brought directly to ER. Onset Date: 12/01/17 Duration: Constant Location: Reports: Chest, Generalized - Related Data Allergies Allergy/AdvReac Type Severity Reaction Status Date / Time No Known Allergies Allergy Verified 12/03/17 11:17 Home Meds: Home Meds Warfarin Sodium [Jantoven] 2.5 mg PO ASDIRECTED 07/12/16 [History] Carvedilol 25 mg PO BID 12/03/17 [History] Cholecalciferol (Vitamin D3) [Vitamin D3] 1,000 unit PO DAILY 12/03/17 [History] Digoxin [Lanoxin] 125 mcg PO BEDTIME 12/03/17 [History] Enalapril [Vasotec] 10 mg PO BID 12/03/17 [History] Fish Oil/Shell-3 Fatty Acids [Fish Oil 1,000 MG] 1,000 mg PO DAILY 12/03/17 [ History] Flaxseed Oil 1,000 mg PO DAILY 12/03/17 [History] Garlic 1,000 mg PO DAILY 12/03/17 [History] Past Medical History HEENT History: Reports: None Cardiovascular History: Reports: Afib, CAD, Heart Failure, High Cholesterol, Hypertension, Other (See Below) Other Cardiovascular History: valvular heart disease Respiratory History: Reports: None Gastrointestinal History: Reports: None Genitourinary History: Reports: None Musculoskeletal History: Reports: None Neurological History: Reports: None Psychiatric History: Reports: None Endocrine/Metabolic History: Reports: None, Vitamin D Deficiency, Other (See Below) Other Endocrine/Metabolic History: hyperglycemia Hematologic History: Reports: None Immunologic History: Reports: None Oncologic (Cancer) History: Reports: None Dermatologic History: Reports: None Other Dermatologic History: C/o recent rash to back; caused itching. - Infectious Disease History Infectious Disease History: Reports: None - Past Surgical History HEENT Surgical History: Reports: Tonsillectomy Musculoskeletal Surgical History: Reports: Other (See Below) Other Musculoskeletal Surgeries/Procedures:: idiopathic chronic gout of left foot Social & Family History - Family History Family Medical History: Unobtainable - Tobacco Use Smoking Status *Q: Former Smoker Used Tobacco, but Quit: Yes Month/Year Tobacco Last Used: unknown - Caffeine Use Caffeine Use: Reports: Coffee - Recreational Drug Use Recreational Drug Use: No - Living Situation & Occupation Living situation: Reports: Single, Alone Occupation: Retired ED ROS GENERAL - Review of Systems Review Of Systems: See Below Constitutional: Reports: No Symptoms HEENT: Reports: No Symptoms Respiratory: Reports: Shortness of Breath Cardiovascular: Reports: Dyspnea on Exertion Endocrine: Reports: No Symptoms GI/Abdominal: Reports: No Symptoms : Reports: No Symptoms Musculoskeletal: Reports: No Symptoms Skin: Reports: No Symptoms Neurological: Reports: No Symptoms Psychiatric: Reports: No Symptoms Hematologic/Lymphatic: Reports: No Symptoms Immunologic: Reports: No Symptoms ED EXAM, GENERAL - Physical Exam Exam: See Below Exam Limited By: No Limitations General Appearance: Alert, WD/WN, Mild Distress Eye Exam: Bilateral Eye: EOMI, PERRL Throat/Mouth: Normal Inspection, Normal Lips, Normal Oropharynx, Normal Voice, No Airway Compromise Head: Atraumatic, Normocephalic Neck: Normal Inspection, Supple, Non-Tender, Full Range of Motion Respiratory/Chest: No Respiratory Distress, Lungs Clear, Normal Breath Sounds, No Accessory Muscle Use, Chest Non-Tender Cardiovascular: Tachycardia, Irregularly Irregular Peripheral Pulses: 3+: Radial (L), Radial (R) GI/Abdominal: Normal Bowel Sounds, Soft, Non-Tender, No Organomegaly, No Distention (Male) Exam: Deferred Rectal (Males) Exam: Deferred Back Exam: Normal Inspection, Full Range of Motion, NT Extremities: Normal Inspection, Normal Range of Motion, Non-Tender, Normal Capillary Refill, No Pedal Edema Neurological: Alert, Oriented, CN II-XII Intact, Normal Cognition, Normal Gait, Normal Reflexes, No Motor/Sensory Deficits Psychiatric: Normal Affect, Normal Mood Skin Exam: Warm, Dry, Intact, Normal Color, No Rash Lymphatic: No Adenopathy EKG INTERPRETATION Rhythm: A-Fib Course - Vital Signs Last Recorded V/S: Last Vital Signs Temp 35.9 C 12/03/17 10:20 Pulse 128 H 12/03/17 12:25 Resp 16 12/03/17 12:25 BP 110/74 12/03/17 12:25 Pulse Ox 95 12/03/17 12:11 - Orders/Labs/Meds Orders: Active Orders 24 hr Category Date Time Status EKG Documentation Completion [RC] STAT Care 12/03/17 10:23 Active EKG Documentation Completion [RC] STAT Care 12/03/17 12:29 Ordered Chest 1V Frontal [CR] Stat Exams 12/03/17 10:23 Taken Diltiazem [Cardizem] 100 mg Med 12/03/17 12:00 Active Sodium Chloride 0.9% [Normal Saline] 100 ml IV TITRATE Sodium Chloride 0.9% [Normal Saline] 1,000 ml Med 12/03/17 11:25 Ordered IV .BOLUS Sodium Chloride 0.9% [Saline Flush] Med 12/03/17 10:23 Active 10 ml FLUSH ASDIRECTED PRN Peripheral IV Insertion Adult [OM.PC] Routine Oth 12/03/17 10:23 Ordered Medication Orders Sodium Chloride (Normal Saline) 1,000 mls @ 250 mls/hr IV .BOLUS ONE Stop: 12/03/17 15:24 Last Admin: 12/03/17 11:30 Dose: 250 mls/hr Diltiazem HCl 100 mg/ Sodium (Chloride) 100 mls @ 15 mls/hr IV TITRATE NAYELI; Protocol Last Admin: 12/03/17 12:05 Dose: 10 mg/hr, 10 mls/hr Sodium Chloride (Saline Flush) 10 ml FLUSH ASDIRECTED PRN PRN Reason: Keep Vein Open Labs: Laboratory Tests 12/03/17 12/03/17 12/03/17 Range/Units 10:40 10:40 10:40 WBC 7.8 (4.0-10.0) x10^3/uL RBC 4.27 L (4.5-6.0) x10^6/uL Hgb 14.7 D (14.0-18.0) g/dL Hct 43.4 (40.0-52.0) % MCV 101.6 H (78.0-93.0) fL MCH 34.4 H (26.0-32.0) pg MCHC 33.9 (32.0-36.0) g/dL RDW Coeff of Genie 14.9 (10.0-15.0) % Plt Count 215 (130-400) x10^3/uL Neut % (Auto) 72.4 (50.0-80.0) % Lymph % (Auto) 11.4 L (25.0-50.0) % [place] % (Auto) 15.8 H (2.0-11.0) % Eos % (Auto) 0.1 (0.0-4.0) % Baso % (Auto) 0.3 (0.2-1.2) % PT 34.8 H (9.6-11.4) SEC INR 3.4 (2.0-3.5) Sodium 142 (136-145) mmol/L Potassium 4.1 (3.5-5.1) mmol/L Chloride 105 (98-107) mmol/L Carbon Dioxide 26 (21-32) mmol/L Anion Gap 15.1 (10-20) mmol/L BUN 26 H (7-18) mg/dL Creatinine 1.8 H (0.70-1.30) mg/dL Est Cr Clr Drug Dosing 39.96 mL/min Estimated GFR (MDRD) 37 Glucose 160 H (74-106) mg/dL Calcium 9.1 (8.5-10.1) mg/dL Corrected Calcium 9.50 (8.5-10.1) mg/dL Phosphorus 3.5 (2.6-4.7) mg/dL Magnesium 2.3 (1.8-2.4) mg/dL Total Bilirubin 1.5 H (0.2-1.0) mg/dL AST 79 H (15-37) U/L ALT 84 H (16-63) U/L Alkaline Phosphatase 63 (46-116) U/L Troponin I 0.061 H* (<=0.056) ng/mL C-Reactive Protein 2.1 H (<=0.9) mg/dL NT-Pro-B Natriuret Pep 5665 H (<=450) pg/mL Total Protein 7.3 (6.4-8.2) g/dL Albumin 3.5 (3.4-5.0) g/dL Globulin 3.8 Albumin/Globulin Ratio 0.92 TSH, Ultra Sensitive 4.715 H (0.358-3.74) uIU/mL Meds: Medications Generic Name Dose Route Start Last Admin Trade Name Karlene PRN Reason Stop Dose Admin Sodium Chloride 1,000 mls @ 250 mls/hr 12/03/17 11:25 12/03/17 11:30 Normal Saline IV 12/03/17 15:24 250 mls/hr .BOLUS ONE Administration Diltiazem HCl 100 mg/ Sodium 100 mls @ 15 mls/hr 12/03/17 12:00 12/03/17 12: 05 Chloride IV 10 mg/hr TITRATE NAYELI 10 mls/hr Administration Protocol 15 MG/HR Sodium Chloride 10 ml 12/03/17 10:23 Saline Flush FLUSH ASDIRECTED PRN Keep Vein Open Discontinued Medications Generic Name Dose Route Start Last Admin Trade Name Karlene PRN Reason Stop Dose Admin Diltiazem HCl 25 mg 12/03/17 10:26 12/03/17 10:34 Diltiazem IVPUSH 12/03/17 10:27 25 mg ONETIME ONE Administration Diltiazem HCl 20 mg 12/03/17 11:34 12/03/17 11:44 Diltiazem IVPUSH 12/03/17 11:35 20 mg ONETIME ONE Administration Diltiazem HCl 125 mg/ Sodium 125 mls @ 5 mls/hr 12/03/17 11:30 Chloride IV TITRATE NAYELI 5 MG/HR Diltiazem HCl 100 mg/ Sodium 100 mls @ 5 mls/hr 12/03/17 11:36 12/03/17 11:37 Chloride IV 5 mg/hr TITRATE NAYELI 5 mls/hr Administration 5 MG/HR - Re-Assessments/Exams Free Text/Narrative Re-Assessment/Exam: 12/03/17 1035 Pt. was initially given cardisem 25mg IV. Rate did decrease down to approx. 119 , but was irregular and increased back into the 140-160 range. Free Text/Narrative Re-Assessment/Exam: 12/03/17 11:43 Pt. was started on a cardizem drip at 5mg/hr. He was also given cardizem 20mg IV 1157 Pt. consistently in 120-135. Cardizem was titrated to 10mg/hr. Free Text/Narrative Re-Assessment/Exam: 12/03/17 12:47 Pt. heart rate in the 120 range consistently. Cardizem drip titrated to 15mg./ hr. Pt. remained hemodynamically stable during his stay in ER. Departure - Departure Time of Disposition: 12:46 Disposition: DC/Tfer to Acute Hospital 02 Clinical Impression: Atrial fibrillation with RVR CHF (congestive heart failure) Qualifiers: Qualified Code(s): I50.32 - Chronic diastolic (congestive) heart failure - Discharge Information Referrals: Rebecca Rodríguez MD [Primary Care Provider] - Forms: ED Department Discharge, Interfacility Transfer EMTALA - My Orders Last 24 Hours: My Active Orders 12/03/17 10:23 EKG Documentation Completion [RC] STAT Chest 1V Frontal [CR] Stat Sodium Chloride 0.9% [Saline Flush] 10 ml FLUSH ASDIRECTED PRN Peripheral IV Insertion Adult [OM.PC] Routine 12/03/17 11:25 Sodium Chloride 0.9% [Normal Saline] 1,000 ml IV .BOLUS 12/03/17 12:00 Diltiazem [Cardizem] 100 mg Sodium Chloride 0.9% [Normal Saline] 100 ml IV TITRATE 12/03/17 12:29 EKG Documentation Completion [RC] STAT - Assessment/Plan Last 24 Hours: My Active Orders 12/03/17 10:23 EKG Documentation Completion [RC] STAT Chest 1V Frontal [CR] Stat Sodium Chloride 0.9% [Saline Flush] 10 ml FLUSH ASDIRECTED PRN Peripheral IV Insertion Adult [OM.PC] Routine 12/03/17 11:25 Sodium Chloride 0.9% [Normal Saline] 1,000 ml IV .BOLUS 12/03/17 12:00 Diltiazem [Cardizem] 100 mg Sodium Chloride 0.9% [Normal Saline] 100 ml IV TITRATE 12/03/17 12:29 EKG Documentation Completion [RC] STAT Plan: Spoke with Dr. Rodríguez about admitting pt. but she felt pt. needed further workup at referral facility. Will be transferred to CDU room 10 at [facility] in [place]. Dr. Faulkner is accepting. Will be transferred via [facility] ground ambulance.
[2017-12-03] MEDS ORDERED: Diltiazem 100 MG in Sodium Chloride 0.9% 100 ML IV SCH ×2 (11:36→12:00)
[2017-12-03 12:51] VITALS: BP 119/92
== END 2017-12-03 13:05 | disposition short-term general hospital (02) ==
LOC: VM.ED 10:15
DX: I11.0 Hypertensive heart disease with heart failure (principal); I50.32 Chronic diastolic (congestive) heart failure; I48.91 Unspecified atrial fibrillation; E78.00 Pure hypercholesterolemia, unspecified; Z79.899 Other long term (current) drug therapy; Z87.891 Personal history of nicotine dependence
CPT/HCPCS: 36415; 71045; 80053; 83735; 83880; 84100; 84443; 84484; 85025; 85610; 86140; 93005; 96365; 96366; 96376; 99285; J3490; J7030; J7050